=== PATIENT | female | born 1955 | race Caucasian/White ===

== ENCOUNTER 2018-04-22 06:13 | Day surgery (SDC) | payer BC ==
[~2018-04-22 06:13] MED LIST: Dextrose 5%-0.45% NaCl 1,000 ML IV SCH; Sodium Chloride 0.9% 10 ML Syringe FLUSH PRN
[2018-04-22] MEDS ORDERED: fentaNYL 100 MCG/2 ML SDV IV ONE ×3 (06:14→07:33)
[2018-04-22] MEDS ORDERED: Midazolam 1 MG/ML 2 ML SDV IV ONE ×7 (06:14→07:50)
[2018-04-22] MEDS ORDERED: Midazolam 1 MG/ML 2 ML SDV ONE (06:44)
[2018-04-22] MEDS ORDERED: fentaNYL 100 MCG/2 ML SDV ONE (06:44)
--- NOTE | 2018-04-22 08:54 | OR ---
DATE: 04/22/2018 PROCEDURES: Total colonoscopy and multiple cold snare polypectomies. INSTRUMENT USED: PCF-H190 DL Olympus video colonoscope. PREMEDICATIONS: Fentanyl 100 mcg intravenous, Versed 4 mg intravenous. Nasal O2 cannula. The procedure was done under pulse oximetry, BP recording, and color television console monitor. INDICATION: The patient with previous colonic tubular adenoma. Surveillance colonoscopic examination is done for detection of any polypoid lesions and removal. Endoscopic hemostasis therapy if needed. DESCRIPTION OF PROCEDURE: Initial rectal exam was unremarkable. Rigid anoscopy was normal. The colonoscope was passed up to the ileocecal area. Photographs were taken of the normal-appearing cecum, identified by double-bulged ileocecal folds. The colon was found to be tortuous and redundant. No bleeding was noted from any of the visualized areas at the commencement of the examination. There was moderate amount of liquid fecal material that had to be aspirated clear. Bowel preparation, Wilson scale 2. In the mid descending colon, a 5-mm sized benign- appearing polyp was noted. Photograph was taken. Cold snare polypectomy was done. The tissue was retrieved and sent for histopathology. No stricture. No vascular ectasia. No large isolated ulcerations seen. No evidence of diffuse inflammatory bowel disease in the form of friability, contact bleeding, or ulcerations. In the proximal and distal ascending colon, 5-mm sized benign- appearing polyps were noted. Cold snare polypectomies were done. The tissues were retrieved and sent for histopathology. Probing the proximal sides of folds and flexures, using adequate distention and clearing up the stool material, withdrawal of the scope was made. No bleeding was noted from any of the visualized areas at the completion of examination. IMPRESSION: Multiple colonic polyps. The patient tolerated the procedure well. [facility] /[id number]
[2018-04-22 10:06] VITALS: BP 107/65
== END 2018-04-22 10:10 | disposition home or self-care (01) ==
LOC: DL.ENDO 06:13
PROVIDERS: ATTEND Internal Medicine Gastroenterology
DX: Z12.11 Encounter for screening for malignant neoplasm of colon (principal); D12.2 Benign neoplasm of ascending colon; D12.4 Benign neoplasm of descending colon; E78.5 Hyperlipidemia, unspecified; M81.0 Age-related osteoporosis without current pathological fracture; F41.1 Generalized anxiety disorder; Z90.49 Acquired absence of other specified parts of digestive tract; Z90.89 Acquired absence of other organs; Z98.890 Other specified postprocedural states; Z86.010 Personal history of colon polyps; Z88.1 Allergy status to other antibiotic agents
CPT/HCPCS: J2250; J3010; J7042

== ENCOUNTER 2019-08-17 19:20 | Emergency (ER) | payer BC ==
[2019-08-17 19:38] VITALS: BP 120/78; PULSE 89
--- NOTE | 2019-08-17 20:44 | EDM.PDOC ---
ED HPI GENERAL MEDICAL PROBLEM - General Chief Complaint: Head Injury Stated Complaint: FELL AND HIT HEAD ON CEMENT Time Seen by Provider: 08/17/19 20:37 Source of Information: Reports: Patient, RN History Limitations: Reports: No Limitations - History of Present Illness INITIAL COMMENTS - FREE TEXT/NARRATIVE: fell backwards out of boat while attempting to take picture and miss stepped. Hit head on concrete, headache now. no dizziness no blurred vision, no loss of consciousness. Baby aspirin daily. Denies other injury. No neck pain GCS 15. Head Pain Score (Numeric/FACES): 8 - Related Data Allergies Allergy/AdvReac Type Severity Reaction Status Date / Time doxycycline Allergy Anaphylactic Verified 08/17/19 19:51 Shock Home Meds: Home Meds Acetaminophen 325 mg PO ASDIRECTED 02/19/14 [History] Calcium Citrate/Vitamin D3 [Calcet Creamy Bites] 1 each PO DAILY 02/19/14 [ History] Simvastatin 20 mg PO DAILY 02/19/14 [History] Venlafaxine HCl [Venlafaxine ER] 37.5 mg PO TID 02/19/14 [History] Venlafaxine HCl [Venlafaxine ER] 75 mg PO TID 02/19/14 [History] clonazePAM [Clonazepam] 1 mg PO ASDIRECTED 02/19/14 [History] Alendronate Sodium [Fosamax] 70 mg PO DAILY 04/19/18 [History] DULoxetine [Cymbalta] 60 mg PO DAILY 04/19/18 [History] Oxybutynin Chloride [Ditropan Xl] 10 mg PO DAILY 04/19/18 [History] atorvaSTATin [Lipitor] 20 mg PO DAILY 04/19/18 [History] prednisoLONE acetate [Pred Forte 1% Ophth Susp] 1 drop EYEBOTH ASDIRECTED [History] Past Medical History HEENT History: Reports: None Cardiovascular History: Reports: High Cholesterol Respiratory History: Reports: None Gastrointestinal History: Reports: Chronic Constipation Genitourinary History: Reports: None 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: Musculoskeletal History: Reports: Osteoporosis, Other (See Below) Other Musculoskeletal History: Hx of compresssion FX, kyphoplasty Neurological History: Reports: None Psychiatric History: Reports: Anxiety, Depression, Panic Attack Endocrine/Metabolic History: Reports: None Hematologic History: Reports: None Immunologic History: Reports: None Oncologic (Cancer) History: Reports: Other (See Below) Other Oncologic History: skin ca Dermatologic History: Reports: None - Infectious Disease History Infectious Disease History: Reports: None - Past Surgical History Head Surgeries/Procedures: Reports: None HEENT Surgical History: Reports: Adenoidectomy, Tonsillectomy Cardiovascular Surgical History: Reports: None GI Surgical History: Reports: Appendectomy, Cholecystectomy, Colonoscopy Female Surgical History: Reports: Section Musculoskeletal Surgical History: Reports: None Social & Family History - Family History Family Medical History: Noncontributory Cardiac: Reports: CAD, High Cholesterol, Hypertension, MD - Tobacco Use Smoking Status *Q: Never Smoker Second Hand Smoke Exposure: No - Caffeine Use Caffeine Use: Reports: None Caffeine Use Comment: 2 cups daily - Recreational Drug Use Recreational Drug Use: No - Living Situation & Occupation Living situation: Reports: , with Spouse Occupation: Retired ED ROS GENERAL - Review of Systems Review Of Systems: Comprehensive ROS is negative, except as noted in HPI. ED EXAM, HEAD INJURY - Physical Exam Exam: See Below Exam Limited By: No Limitations General Appearance: Alert, Anxious, Mild Distress Head: Normocephalic, Scalp Hematoma (posterior parietal), Scalp Tenderness. No : Scalp Lacerations, Active Bleeding, [place]'s Sign, Facial Lacerations Nexus Criteria: Painful Distraction Injuries. No: Posterior, Midline Cervical Tenderness, Evidence of Intoxication, Altered Level of Consciousness, Focal Neurological Deficit Eyes: Bilateral Eye: EOMI, PERRL (3mm) Ears: Normal External Exam, Hearing Grossly Normal, Normal TMs Nose: Normal Inspection Throat/Mouth: Normal Inspection Neck: Non-Tender, Full Range of Motion. 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 As Tested, No Motor/Sensory Deficits, Alert, Oriented x 3 Skin: Normal Color, Other (scalp abrasion/ hematoma posterior parietla) - Agustina Coma Score Best Eye Response ([place]): (4) Open Spontaneously Best Verbal Response ([place]): (5) Oriented Best Motor Response ([place]ust[place]): (6) Obeys Commands Course - Vital Signs Last Recorded V/S: Last Vital Signs Temp 97.5 F 08/17/19 19:36 Pulse 89 08/17/19 19:36 Resp 18 08/17/19 19:36 BP 120/78 08/17/19 19:36 Pulse Ox 98 08/17/19 19:36 - Orders/Labs/Meds Meds: Medications Discontinued Medications Generic Name Dose Route Start Last Admin Trade Name Kirt PRN Reason Stop Dose Admin Acetaminophen 650 mg 08/17/19 21:20 Tylenol PO 08/17/19 21:21 NOW ONE - Re-Assessments/Exams Free Text/Narrative Re-Assessment/Exam: Imaging unremarkable. scalp hematoma. Patient remains alert orient GCS 15. D/C home. Departure - Departure Time of Disposition: 21:21 Disposition: Home, Self-Care 01 Condition: Good Clinical Impression: Fall Qualifiers: Encounter type: initial encounter Qualified Code(s): W19.XXXA - Unspecified fall, initial encounter Contusion of head Qualifiers: Encounter type: initial encounter Contusion of head detail: scalp Qualified Code(s): S00.03XA - Contusion of scalp, initial encounter - Discharge Information *PRESCRIPTION DRUG MONITORING PROGRAM REVIEWED*: No *COPY OF PRESCRIPTION DRUG MONITORING REPORT IN PATIENT MONA: No Instructions: Concussion, Adult, [id number], Facial or Scalp Contusion, Easy- to-Read Referrals: Sadaf Pereira NP [Primary Care Provider] - Forms: ED Department Discharge Additional Instructions: light activity advance slowly diet as tolerated tylenol 650mg every 4-6 hours as needed ice to scalp urgent follow up if weakness blurred vision, repeated vomiting or severe headache confusion Sepsis Event Note (ED) - Evaluation Sepsis Screening Result: No Definite Risk - Focused Exam Vital Signs: Vital Signs Temp Pulse Resp BP Pulse Ox 08/17/19 19:36 97.5 F 89 18 120/78 98
--- NOTE | 2019-08-17 21:13 | CT ---
PROCEDURE INFORMATION: Exam: CT Cervical Spine Without Contrast Exam date and time: 08/17/2019 8:46 PM Age: 64 years old Clinical indication: Other: Fall; Additional info: Fell hit head TECHNIQUE: Imaging protocol: Computed tomography images of the cervical spine without contrast. Radiation optimization: All CT scans at this facility use at least one of these dose optimization techniques: automated exposure control; mA and/or kV adjustment per patient size (includes targeted exams where dose is matched to clinical indication); or iterative reconstruction. COMPARISON: No relevant prior studies available. FINDINGS: Vertebrae: Marginal osteophytes are noted at multiple levels in the spine. The vertebral body heights are maintained. The facet joints demonstrate mild degenerative hypertrophy and sclerosis. There is no evidence of acute fracture. Discs/Spinal canal/Neural foramina: There is no significant spinal canal narrowing. There is no evidence of foraminal stenosis. Soft tissues: The extraspinous soft tissues are normal. Lungs: The visualized portions of the lung apices are normal. IMPRESSION: No acute abnormality.
--- NOTE | 2019-08-17 21:14 | CT ---
PROCEDURE INFORMATION: Exam: CT Head Without Contrast Exam date and time: 08/17/2019 8:46 PM Age: 64 years old Clinical indication: Other: Pain; Additional info: Fell hit head TECHNIQUE: Imaging protocol: Computed tomography of the head without contrast. Radiation optimization: All CT scans at this facility use at least one of these dose optimization techniques: automated exposure control; mA and/or kV adjustment per patient size (includes targeted exams where dose is matched to clinical indication); or iterative reconstruction. COMPARISON: No relevant prior studies available. FINDINGS: Brain: There is no evidence of acute hemorrhage within the brain parenchyma or the subarachnoid space. No abnormal attenuation is noted within the brain parenchyma. Ventricles: There is no significant ventricular effacement or midline shift. The ventricular system is normal in size and distribution. Bones/joints: The skull is normal. Sinuses: The sinuses are normal. Mastoid air cells: The mastoid sinuses are normal. Orbits: The orbits are normal. Soft tissues: There is a modest scalp hematoma centered to the left of midline in the parietal occipital region. IMPRESSION: Scalp hematoma without acute intracranial abnormality.
[2019-08-17] MEDS ORDERED: Acetaminophen 325 MG Tab PO ONE (21:20)
== END 2019-08-17 21:32 | disposition home or self-care (01) ==
LOC: DL.ED 19:20
DX: S00.03XA Contusion of scalp, initial encounter (principal); E78.00 Pure hypercholesterolemia, unspecified; F41.9 Anxiety disorder, unspecified; F32.9 Major depressive disorder, single episode, unspecified; Z88.1 Allergy status to other antibiotic agents; Z79.899 Other long term (current) drug therapy; V94.0XXA Hitting object or bottom of body of water due to fall from watercraft, initial encounter
CPT/HCPCS: 70450; 72125; 99283-25

== ENCOUNTER 2023-10-15 11:22 | Emergency (ER) | payer BC ==
[2023-10-15 11:30] VITALS: BP 137/81; PULSE 81
[2023-10-15] MEDS: prednisoLONE Acetate 1% Ophth Susp 5 ML Bottle EYERT ONE (12:17)
== END 2023-10-15 12:20 | disposition home or self-care (01) ==
LOC: DL.ED 11:22
DX: T54.91XA Toxic effect of unspecified corrosive substance, accidental (unintentional), initial encounter (principal); H10.211 Acute toxic conjunctivitis, right eye; E78.00 Pure hypercholesterolemia, unspecified; Z88.8 Allergy status to other drugs, medicaments and biological substances; Z79.899 Other long term (current) drug therapy; Z90.49 Acquired absence of other specified parts of digestive tract
CPT/HCPCS: 99283; A9270

== ENCOUNTER 2024-12-01 15:26 | Emergency (ER) | payer BC, MEDICARE ==
[2024-12-01 16:02] LABS: BASOPHILS PERCENT AUTO 0.3 % (0.0-1.0); EOSINOPHILS PERCENT AUTO 4.7 % (1.0-3.0); LYMPHOCYTES PERCENT AUTO 30.3 % (20.5-50.1); MONOCYTES PERCENT AUTO 9.5 % (2-8); NEUTROPHILS PERCENT AUTO 55.2 % (42.2-75.2); PLATELET COUNT,PLT 470 10^3/uL (150-450); RED BLOOD CELL COUNT 3.93 10^6/uL (4.2-5.4); WHITE BLOOD CELL COUNT,WBC 10.3 10^3/uL (5.0-10.0)
[2024-12-01 16:13] LABS: A/G RATIO 0.9; ALANINE AMINOTRANSFERASE,ALT 19.0 U/L (14-59); ASPARTATE AMNIOTRANSFERASE,AST 20.0 U/L (15-37); BILIRUBIN TOTAL 0.6 mg/dL (0.2-1.0); BLOOD UREA NITROGEN,BUN 14.0 mg/dL (7-18); CARBON DIOXIDE,CO2 28.0 mmol/L (21-32); CHLORIDE,CL 103.0 mmol/L (98-107); CREATININE 0.63 mg/dL (0.55-1.02); EST CRCL DRUG DOSING (CG) 73.8 mL/min; GLUCOSE RANDOM 105.0 mg/dL (70-99); POTASSIUM,K 3.9 mmol/L (3.5-5.1); PROTEIN TOTAL,TP 7.5 g/dL (6.4-8.2); SODIUM,NA 139.0 mmol/L (136-145)
[2024-12-01 16:14] LABS: ESTIMATED GFR 97.0 mL/min (>=60)
[2024-12-01 18:06] VITALS: BP 147/79; PULSE 75
== END 2024-12-01 16:50 | disposition home or self-care (01) ==
LOC: DL.ED 15:26
DX: R55 Syncope and collapse (principal); E78.00 Pure hypercholesterolemia, unspecified; Z88.8 Allergy status to other drugs, medicaments and biological substances; Z79.899 Other long term (current) drug therapy; Z90.49 Acquired absence of other specified parts of digestive tract
CPT/HCPCS: 36415; 80053; 83735; 84484; 85025; 85379; 93005; 99285